=== PATIENT | female | born 1965 | race Caucasian/White ===

== ENCOUNTER 2021-11-10 10:13 | Observation (INO) | payer MEDICARE, MEDICAID, SELFPAY ==
[2021-11-10] VITALS (9 sets, daily range): BP systolic 106–143; BP diastolic 66–92; PULSE 74–117; RESP 16–18; TEMP 36.6–37; O2SAT 93–98; BMI 22.1; BMI 19.5
--- NOTE | 2021-11-10 10:26 | CT_ITS ---
FINAL REPORT CLINICAL HISTORY: pain FINDINGS: CT OF THE ABDOMEN AND PELVIS WITH CONTRAST Axial CT images of the abdomen and pelvis were obtained after the administration of oral and iv contrast. Coronal reformatted images were also obtained and reviewed.This study was performed with techniques to keep radiation doses as low as reasonably achievable (ALARA). Individualized dose reduction techniques using automated exposure control or adjustment of mA and/or kV according to the patient's size were employed. Abdomen: The lung bases are clear. The heart is normal in size. The liver has an unremarkable appearance, without evidence of mass or biliary ductal dilatation. The patient is status post cholecystectomy. The spleen is unremarkable. No adrenal mass is present. The pancreas has an unremarkable appearance. The kidneys are normal, without evidence of mass or hydronephrosis. The aorta is normal in caliber. There is no free fluid or adenopathy. No mass or abnormal fluid collection is seen. Pelvis: The appendix is normal. The patient is status post hysterectomy The urinary bladder is unremarkable. No inflammatory process is seen. There is no evidence of mass or adenopathy. There is no evidence of bowel obstruction. IMPRESSION: No evidence of acute intra-abdominal process. Reviewed, Interpreted and Dictated by Kenji Mercado III, MD Transcribed by Caitlin Etienne Authenticated by Kenji Mercado III, MD on 11/10/2021 03:45:32 PM [facility]
--- NOTE | 2021-11-10 10:27 | HMH.EDGENADL ---
ED Disposition Clinical Impression: Dehydration, Elevated troponin, Abnormal EKG Vomiting Qualifiers: Vomiting type: unspecified Nausea presence: with nausea Qualified Code(s): R11.2 - Nausea with vomiting, unspecified Hypothyroidism Qualifiers: Hypothyroidism type: unspecified Qualified Code(s): E03.9 - Hypothyroidism, unspecified UTI (urinary tract infection) Qualifiers: Urinary tract infection type: acute cystitis Hematuria presence: without hematuria Qualified Code(s): N30.00 - Acute cystitis without hematuria Disposition: Admitted as Observation Condition on Discharge: [facility] - Critical Care Critical Care Time: No Attestation: On 11/10/21, the high probability of a clinically significant, sudden or life threatening deterioration of the following system(s) required my full and direct attention, intervention and personal management. The time I documented below is in addition to time spent performing reported procedures but includes the following listed in this critical care notation. Medical Decision Making - Philip Inquiry Pt receiving controlled substance: No Vital Signs: 11/10/21 10:14 11/10/21 12:30 11/10/21 13:00 Temperature 98.5 F Temperature Source Oral Pulse Rate 92 H 101 H Pulse Rate [Left Radial] 117 H Respiratory Rate 18 Blood Pressure 126/81 118/82 Blood Pressure [Right Arm] 118/92 H Blood Pressure Mean [Right Arm] 100 Blood Pressure Source [Right Arm] Automatic Cuff Blood Pressure Position [Right Arm] Supine 02 Sat by Pulse Oximetry 93 L 96 93 L Oxygen Delivery Method Room Air 11/10/21 13:30 11/10/21 14:00 Temperature Temperature Source Pulse Rate 105 H 102 H Pulse Rate [Left Radial] Respiratory Rate Blood Pressure 106/66 L 111/79 Blood Pressure [Right Arm] Blood Pressure Mean [Right Arm] Blood Pressure Source [Right Arm] Blood Pressure Position [Right Arm] 02 Sat by Pulse Oximetry 97 94 L Oxygen Delivery Method - Lab Data Lab Results 11/10/21 10:26: SARS-CoV-2 (PCR) Not detected, Influenza A Untype (PCR) Not detected, Influenza Type B (PCR) Not detected 11/10/21 11:06: WBC 9.9, RBC 5.03, Hgb 15.9, Hct 48.7 H, MCV 96.7, MCH 31.5 H, MCHC 32.6, RDW 13.7, Plt Count 272, MPV 10.2, Neut % (Auto) 74.1, Lymph % (Auto) 15.5, Bartholomew % (Auto) 5.6, Eos % (Auto) 1.5, Baso % (Auto) 3.3 H, Neut # (Auto) 7.3, Lymph # (Auto) 1.5, Bartholomew # (Auto) 0.6, Eos # (Auto) 0.2, Baso # (Auto) 0.3 H 11/10/21 11:06: Sodium 127 L, Potassium 3.5, Chloride 92 L, Carbon Dioxide 27, Anion Gap 11.5, BUN 44 H, Creatinine 1.40 H, Estimated Creat Clear 41, Estimated GFR 39 L, Est GFR ( Amer) 47 L, Glucose 115 H, Calcium 8.3 L, Total Bilirubin 1.4 H, AST 148 H, ALT 45, Alkaline Phosphatase 146 H, Troponin I 0.11 H, Total Protein 6.9, Albumin 3.5, Globulin 3.4 H, Albumin/Globulin Ratio 1.0 L, Amylase 70, Lipase 154 11/10/21 11:06: TSH 15.30 H, Free T4 Index 2.7 L, Thyroxine (T4) 7.5, T3 Uptake 36 11/10/21 14:00: Troponin I 0.12 H 11/10/21 16:30: Urine Color [place], Urine Appearance Cloudy, Urine pH 6.5, Ur Specific [place] 1.015, Urine Protein 1+, Urine Glucose (UA) Negative, Urine Ketones Trace, Urine Blood Trace-l, Urine Nitrate Positive, Urine Bilirubin Negative, Urine Urobilinogen 1.0, Ur Leukocyte Esterase 2+ A Result diagrams: 11/10/21 11:06 11/10/21 11:06 Orders (Tests/Meds): ED MEDICATIONS Discontinued Medications Generic Name Dose Route Start Last Admin Trade Name Freq PRN Reason Stop Dose Admin Aspirin 324 mg 11/10/21 16:40 Aspirin 81mg Chewable Tablet PO 11/10/21 16:41 ONCE ONE Sodium Chloride 1,000 mls @ 999 mls/hr 11/10/21 10:30 11/10/21 11:18 Sod Chlor 0.9% 1000ml Bag IV 11/10/21 11:30 999 mls/hr .Q1H1M BASILIO Administration Ondansetron HCl 4 mg 11/10/21 10:26 11/10/21 11:18 Ondansetron 4mg/2ml Vial IV 11/10/21 10:27 4 mg ONCE ONE Administration Ticagrelor 180 mg 11/10/21 16:40 Ticagrelor 90mg Tablet PO
--- NOTE | 2021-11-10 10:30 | PC.NURSE ---
attempting to get blood work and IV access
[2021-11-10 10:39] LABS: Coronavirus 19, PCR Not Detected (NotDetected); Influenza A, PCR Not Detected (NotDetected); Influenza B, PCR Not Detected (NotDetected)
--- NOTE | 2021-11-10 10:42 | XR_ITS ---
FINAL REPORT CLINICAL HISTORY: cough FINDINGS: Two views of the chest were obtained. The heart size and pulmonary vascularity are within normal limits. The mediastinum is normal. There is mild biapical scarring and pleural thickening. There is no pneumothorax. The bony thorax is intact. IMPRESSION: Mild biapical scarring and pleural thickening. Reviewed, Interpreted and Dictated by Kenji Mercado III, MD Transcribed by Anum Saucedo Authenticated by Kenji Mercado III, MD on 11/10/2021 12:41:[address] [facility]
[2021-11-10 12:09] LABS: Basophils # 0.3 K/mm3 (0-0.2); Basophils % 3.3 % (0.1-2.0); Eosinophils # 0.2 K/mm3 (0.0-0.4); Eosinophils % 1.5 % (0.1-12.0); Hematocrit 48.7 % (37.0-47.0); Hemoglobin 15.9 g/dL (12.2-16.2); Lymphocytes # 1.5 K/mm3 (0.7-4.5); Lymphocytes % 15.5 % (10-50); Mean Corpuscular HGB Conc 32.6 g/dL (31.8-35.4); Mean Corpuscular Hemoglobin 31.5 pg (27.0-31.2); Mean Corpuscular Volume 96.7 fl (81-99); Mean Platelet Volume 10.2 fl (7.4-10.4); Monocytes # 0.6 K/mm3 (0.1-1.0); Monocytes % 5.6 % (1.7-9.3); Neutrophils # 7.3 K/mm3 (1.8-7.8); Neutrophils % 74.1 % (37.0-80.0); Platelet Count 272 K/mm3 (142-424); Red Blood Count 5.03 M/mm3 (4.20-5.40); Red Cell Distribution Width 13.7 % (11.5-17.5); White Blood Count 9.9 K/mm3 (4.8-10.8)
[2021-11-10 12:15] LABS: Chloride 92 mmol/L (98-107); Potassium 3.5 mmoL/L (3.5-5.1); Sodium 127 mmol/L (136-145)
[2021-11-10 12:17] LABS: Amylase 70 U/L (30-110)
[2021-11-10 12:18] LABS: Alanine Aminotransferase 45 U/L (12-78); Albumin Level 3.5 g/dl (3.5-5.0); Alkaline Phosphatase 146 U/L (38-126); Anion Gap 11.5 mEq/L (5-15); Aspartate Amino Transferase 148 U/L (14-36); Bilirubin,Total 1.4 mg/dl (0.2-1.3); Blood Urea Nitrogen 44 mg/dl (7-17); Calcium 8.3 mg/dl (8.4-10.2); Carbon Dioxide 27 mmol/L (22.0-30.0); Creatinine Clearance Estimated 41 mL/min (50-200); Estimated Glomerular Filt Rate 39 ml/min (>60); GFR (African American) 47 ML/MIN (>60); Globulin 3.4 g/dL (1.3-3.2); Glucose 115 mg/dl (74-100); Lipase 154 U/L (23-300); Total Protein,Serum 6.9 g/dl (6.3-8.2)
[2021-11-10 12:30] LABS: Troponin I 0.11 ng/ml (0.00-0.034)
--- NOTE | 2021-11-10 13:00 | ECG_ITS ---
APPROVED REPORT Exam: Resting ECG HR:101 bpm ECG Measurements Heart Rate 101 AXES AR 148 P 80 QRSd 69 QRS 87 QT 397 T 12 QTc [address] DEVIATION AND MODERATE T-WAVE ABNORMALITY, CONSIDER ANTEROLATERAL ISCHEMIA [-0.1+ mV T-WAVE IN V3-V6] ST DEVIATION AND MODERATE T-WAVE ABNORMALITY, CONSIDER INFERIOR ISCHEMIA [-0.1+ mV T-WAVE IN II/aVF] ABNORMAL ECG UNCONFIRMED REPORT Electronically signed by : Maciel Van MD 11/10/2021 19:53:34
--- NOTE | 2021-11-10 13:08 | CA_ITS ---
APPROVED REPORT EXAM: Comprehensive 2D, Doppler, and color-flow Echocardiogram [employer] H[employer]: Ladonna Tai RVT Ht: 5 ft 3 in Wt: 125lbs BSA: 1.58 BP: 118/92 mmHg Indications: ELEVATED TROP,N/V/D X 3 WEEKS,EX SMOKER TDS-LIMITED WINDOWS BEST EXAM POSSIBLE 2D Dimensions LVOT 1.87 cm (M/F) 1.5-2.5 M-Mode Dimensions RVDd 2.00 cm (0.9-2.6) LA Diam 1.76 cm (1.9-4.0) LVDd 2.72 cm (3.5-5.7) Ao Diam 2.30 cm (2.0-3.7) LVDs 1.68 cm (3.5-5.7) IVSd 0.72 cm (0.6-1.1) PWd 0.75 cm (0.6-1.1) EF (Teich) 70.50% FS 38.20% EDV (Teich) 27.50 mL TAPSE 1.04 (<1.7) ESV (Teich) 8.10 mL LV Diastology E Decel Time 227.00 (160-240 msec) E/A Ratio 0.8 MED E' 5.70 (< 7 cm/sec) E'/MED E' Ratio 10.68 (>14) LAT E' 7.80 (<10 cm/sec) E/LAT E' Ratio 7.81 (>14) Aortic Valve LVOT Max 142.00 (70-110 cm/s) LVOT VTI 19.65 cm AoV Peak Matt. 146.00 (50-130 cm/s) AI PHT 1168.00 ms AO Peak GR. 8.50 mmHg AO Mean GR. 5.10 (<5 mmHg) AO VTI 19.97 (18-25 cm) CINTIA (VTI) 2.70 (2.5-4.5 cm2) Mitral Valve MV E Max Matt. 61.00 (40-130 cm/s) MV A Velocity 76.00 (40-130 cm/s) E/A Ratio 0.81 MV Decel. Time 227.00 (160-240 ms) MV PHT 66.00 ms Pulmonary Valve PV Peak Velocity 113.00 (50-150 cm/s) Left Ventricle Left atrium is mildly enlarged, left ventricle is normal size, mild concentric left ventricular hypertrophy, visually estimated ejection fraction 55%, with no obvious regional wall motion abnormality, endocardial surfaces are poorly visualized. Grade 1 diastolic dysfunction seen without tissue Doppler evidence of raise left atrial pressure. Right Ventricle Right atrium and right ventricle are normal size and contractility. Aortic Valve Aortic valve is thickened and calcified without Doppler evidence of aortic stenosis, there is mild aortic insufficiency. Mitral Valve Mitral valve is grossly normal, there is trace mitral regurgitation. Tricuspid Valve Tricuspid valve grossly normal, there is trace tricuspid regurgitation, tricuspid regurgitation jet velocity is inadequate for calculation of the right ventricular systolic pressure. Pulmonic Valve Pulmonic valve is poorly visualized. Great Vessels Aortic root is normal size. Inferior vena cava is poorly visualized. Pericardium No significant pericardial effusion noted. Conclusion 1. Mildly enlarged left atrium, normal left ventricular size, mild concentric left ventricular hypertrophy, visually estimated ejection fraction 55% with no regional wall motion abnormality, grade 1 diastolic dysfunction seen without tissue Doppler evidence of raise left atrial pressure. 2. Mild aortic, trace mitral and tricuspid regurgitation. 3. No significant pericardial effusion noted. 4. Inferior vena cava is poorly visualized. Electronically signed by : Bony Wilcox MD 11/10/2021 19:31:26
[2021-11-10 13:23] LABS: Triiodothryronine (T3) Uptake 36 % (23.5-40.5)
[2021-11-10 13:24] LABS: Free Thyroxine Index 2.7 ug/dL (5.93-13.13); T4 (Thyroxine) 7.5 ug/dl (5.53-11.0)
[2021-11-10 14:33] LABS: Troponin I 0.12 ng/ml (0.00-0.034)
[2021-11-10 16:36] LABS: Microscopic, Urine URINE MICROSCOPIC (MICROSCOPIC)
[2021-11-10 16:38] LABS: Appearance,Urine CLOUDY (Clear); Bilirubin,Urine Negative (Negative); Blood, Urine TRACE-L (Negative); Color,Urine ORANGE (Yellow); Glucose,Urine (UA) Negative (Negative); Ketones,Urine TRACE (Negative); Leukocyte Esterase,Urine 2+ (Negative); Nitrate,Urine POSITIVE (Negative); PH,Urine 6.5 (5.0-8.5); Protein,Urine 1+ (Negative); Specific Gravity, Urine 1.015 (1.005-1.030)
--- NOTE | 2021-11-10 16:38 | PC.NURSE ---
man speaking with
--- NOTE | 2021-11-10 16:50 | PC.NURSE ---
Update family about pt admission
[2021-11-10 17:13] LABS: Bacteria,Urine 3+ /lpf
--- NOTE | 2021-11-10 17:22 | PC.NURSE ---
REPORT CALLED TO FLOOR
[2021-11-10 17:39] LABS: Troponin I 0.14 ng/ml (0.00-0.034)
--- NOTE | 2021-11-10 18:01 | PC.NURSE ---
pt arrived to the floor at this time.
[2021-11-11 01:36] VITALS: BP 99/67; PULSE 69; RESP 16; TEMP 36.6; O2SAT 94
[2021-11-11 04:00] VITALS: PULSE 60
--- NOTE | 2021-11-11 04:35 | PC.NURSE ---
pt has rested t/o most of shift, no complaints of pain or nausea, has remained on room air, O2 sats 94-96%
[2021-11-11 06:00] VITALS: BMI 19.3
--- NOTE | 2021-11-11 07:17 | P.CONPHA_ITS ---
[facility] Pharmacy VTE Monitoring - Patient Demographics Admission date: 11/11/21 Report Date: 11/11/21 Time: 07:17 Allergies/Adverse Reactions: Patient Allergies cyclobenzaprine [From FLEXERIL] Allergy (Mild, Verified 11/10/21 10:26) . Height: 1.63 m Weight: 51.511 kg Patient Problems: Current Active Problems Dehydration (Acute) Elevated troponin (Acute) Abnormal EKG (Acute) Vomiting (Acute) Hypothyroidism (Acute) UTI (urinary tract infection) (Acute) - VTE Risk Labs: VTE Related Lab Results Hgb 15.9 g/dL (12.2-16.2) 11/10/21 11:06 Hct 48.7 % (37.0-47.0) H 11/10/21 11:06 Plt Count 272 K/mm3 (142-424) 11/10/21 11:06 BUN 44 mg/dl (7-17) H 11/10/21 11:06 Creatinine 1.40 mg/dl (0.52-1.04) H 11/10/21 11:06 Estimated Creat Clear 41 mL/min (50-200) 11/10/21 11:06 Was VTE Risk Assessment Performed: Yes VTE Score: 3 VTE Risk Level: Low Risk Clinical Trial Participant: No - Prophylaxis VTE Prophylaxis Ordered?: Yes Types of VTE Prophylaxis: TEDS Knee High
[2021-11-11 07:22] LABS: Anion Gap 8.5 mEq/L (5-15); Blood Urea Nitrogen 34 mg/dl (7-17); Calcium 7.7 mg/dl (8.4-10.2); Carbon Dioxide 29 mmol/L (22.0-30.0); Chloride 96 mmol/L (98-107); Creatinine Clearance Estimated 43 mL/min (50-200); Estimated Glomerular Filt Rate 47 ml/min (>60); GFR (African American) 56 ML/MIN (>60); Glucose 79 mg/dl (74-100); Sodium 131 mmol/L (136-145)
[2021-11-11 07:27] LABS: Potassium 2.5 mmoL/L (3.5-5.1)
--- NOTE | 2021-11-11 07:48 | HMH.PHAINT ---
HOME MEDICATION LIST COMPLETED USING LIST FROM [facility]
[2021-11-11 08:00] VITALS: BP 106/70; PULSE 76; PULSE 80; RESP 18; TEMP 36.8; O2SAT 93
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
--- NOTE | 2021-11-11 08:28 | FL_ITS ---
FINAL REPORT CLINICAL HISTORY: . FINDINGS: UPPER GI WITH SBFT HISTORY: Nausea PROCEDURE: The patient ingested barium. Effervescent crystals were also administered. Spot and overhead films were obtained. Additional barium was administered for a SBFT. FINDINGS:The esophagus has a normal appearance.Marked gastroesophageal reflux is noted to the level of the upper thoracic esophagus. Peristalsis is normal. The rugal fold pattern of the stomach is normal. The duodenal bulb is unremarkable. FLUOROSCOPY TIME:1 minute IMPRESSION: Marked gastroesophageal reflux. Otherwise, unremarkable upper GI. SBFT: The small battery plate assembler film is normal. There is no evidence of obstruction. The mucosal fold pattern is normal. The terminal ilium is normal. IMPRESSION: Normal SBFT. Reviewed, Interpreted and Dictated by Kenji Mercado III, MD Transcribed by JR Weiss Authenticated by Kenji Mercado III, MD on 11/11/2021 11:53:[address] [facility]
--- NOTE | 2021-11-11 09:13 | HMH.PHAINT ---
VERIFIED HOME MEDICATIONS WITH LIST FROM PHARMACY
[2021-11-11 09:23] LABS: C-Reactive Protein 13.4 mg/L (0-4)
[2021-11-11 09:35] LABS: Procalcitonin 0.171 ng/mL (0.0-2.0)
--- NOTE | 2021-11-11 09:50 | PC.NURSE ---
Pt currently off floor for scan. Dr. Perera made aware of K of 2.5.
[2021-11-11 10:11] LABS: Erythrocyte Sedimentation Rate 24 mm/hr (0-30)
--- NOTE | 2021-11-11 10:28 | HMH.HP ---
*Admission Date: 11/11/21 *Chief complaint: nausea *History of present illness: 56-year-old female presented to the emergency department with increasing nausea, vomiting, and vague abdominal pain. She states that she has had trouble for about 5 months . Patient reports a weight loss of 30 to 40 pounds has also been noted. States that she has been sick for 2 weeks with nausea and vomiting and feels like someone is ripping my guts out and has been unable to take her medications for 1 week. Small dark bowel movements without visible blood. She lives with her 13 yr old adopted son. She is a nondrinker and denies drug use. She has never been to this hospital, states her primary care provider is in [place] at [facility]. Patient states her father had an IL at 57. She quit smoking 2 years ago. While in ed it was found pt had abnormal EKG and elevated troponins. Cardiology consulted for evaluation. [facility] History I have reviewed the patient's past medical history: Yes Medical History: Reports:: Hyperlipidemia, Hypertension *Have you ever received a pneumonia vaccine?: Yes *Have you received a flu vaccine this season?: No Other Medical History: Reports: Anemia, Arthritis, Sinus Problems, Thyroid Disease Other Surgeries: Yes: Cholecystectomy, , Hysterectomy-Partial - *Social History Smoking Status: Former smoker # Packs/Day (cigarettes): 1 Alcohol Intake: never *Occupational Status:: disabled *Travel in the last 8 weeks: None Family Hx:: Cancer, Diabetes, Heart Attack Review of Systems - Constitutional Reports weakness, Denies body ache(s), Denies lack of energy - Eyes Denies blurry vision - ENT Denies change in voice - *Cardiovascular Denies shortness of breath - *Respiratory Reports cough, Denies chest congestion - *Gastrointestinal Reports loose stools, Reports nausea, Reports vomiting, Denies abdominal pain - *Genitourinary Denies urinary urgency - *Musculoskeletal Denies abnormal walking - Integumentary/Breasts Denies rash - *Neurologic Reports dizziness, Denies abnormal hearing - Psychiatric Denies anxiety - Endocrine Denies cold intolerance - Hematologic/Lymphatic Denies easy bruising - Allergic/Immunologic Denies GI upset with certain foods Meds Home Medications Medication Instructions Recorded Confirmed Type Buspirone HCl [Buspirone 15 mg 15 mg PO QID 11/10/21 11/11/21 History Tablets] Fluoxetine HCl 80 mg PO DAILY 11/10/21 11/10/21 History Levothyroxine Sodium 125 mcg PO DAILY 11/10/21 11/10/21 History [Levothyroxine 125mcg (0.125mg) Tab] Metoprolol Tartrate [Lopressor 25 mg PO BID 11/10/21 11/10/21 History 25mg tablet] Montelukast Sodium 10 mg PO DAILY 11/10/21 11/10/21 History Omeprazole [Omeprazole 40mg 40 mg PO DAILY 11/10/21 11/10/21 History Capsule] Simvastatin 40 mg PO DAILY 11/10/21 11/10/21 History diazePAM [diazePAM 5mg Tablet] 5 mg PO TID 11/10/21 11/10/21 History lisinopriL [Lisinopril] 10 mg PO HS 11/10/21 11/10/21 History Fluticasone Propion/Salmeterol 2 puffs INHALATION BID 11/11/21 11/11/21 History [Advair Hfa 115-21 Mcg Inhaler] Trazodone HCl 150 mg PO PM 11/11/21 11/11/21 History Allergies Allergy/AdvReac Type Severity Reaction Status Date / Time cyclobenzaprine Allergy Mild . Verified 11/10/21 10:26 [From [facility]THER[facility]] Exam Vital signs and Labs for Last 24 Hours: Temp Pulse Resp BP Pulse Ox 98.2 F 76 18 106/70 L 93 L 11/11/21 08:00 11/11/21 08:00 11/11/21 08:00 11/11/21 08:00 11/11/21 08:00 Laboratory Results - last 24 hr 11/10/21 10:26: SARS-CoV-2 (PCR) Not detected, Influenza A Untype (PCR) Not detected, Influenza Type B (PCR) Not detected 11/10/21 11:06: WBC 9.9, RBC 5.03, Hgb 15.9, Hct 48.7 H, MCV 96.7, MCH 31.5 H, MCHC 32.6, RDW 13.7, Plt Count 272, MPV 10.2, Neut % (Auto) 74.1, Lymph % (Auto) 15.5, [place] % (Auto) 5.6, Eos % (Auto) 1.5, Baso % (Auto) 3.3 H, Neut # (Auto) 7.3, Lymph #
--- NOTE | 2021-11-11 11:01 | PC.NURSE ---
Pt still continues to be off floor.
[2021-11-11 12:00] VITALS: PULSE 69
--- NOTE | 2021-11-11 12:49 | DIET.NUTRFU ---
RD rounded with provider. pt reported n/v prior to admit for the last 10 days. Pt has lost 45# over the last 5 months. Pt on clear liquid diet, poor intake. Sodium low, IFV being provided. Pt at risk of malnutrition. Spoke to pt about supplements, agreed to try Boost breeze to meet nutritional needs.
[2021-11-11 12:54] VITALS: BMI 19.5
[2021-11-11 15:32] VITALS: BP 86/50; PULSE 69; RESP 18; TEMP 36.5; O2SAT 94
--- NOTE | 2021-11-11 16:25 | HMH.GSCON ---
*Admission Date: 11/11/21 *Reason for consult:: Nausea, vomiting, and weight loss *History of present illness: This is a 56-year-old female seen in consultation from the primary service after presenting to the emergency department with increasing nausea, vomiting, and vague abdominal pain. She states that she has had trouble for about 5 months . She claims that she developed fairly significant coughing approximately 5 months ago and subsequent difficulty swallowing. Soon thereafter, fairly significant nausea with intermittent emesis was noted. She states that she has had trouble keeping anything down since . A concomitant weight loss of 30 to 40 pounds has also been noted. She presented to the emergency department with increasing symptomatology. A CT scan revealed no significant abnormality. Follow-up UGI/SBFT did reveal reflux but was otherwise normal. Specifically, no gastric outlet obstruction or small bowel obstruction identified. Evaluation also revealed her to have elevated troponin and acute renal insufficiency. EKG abnormalities were also noted. She has been evaluated by cardiology and tentatively scheduled for heart catheterization tomorrow. Review of Systems - Constitutional Denies chills - Eyes Denies change in vision - ENT Reports difficulty swallowing - *Respiratory Reports cough - *Gastrointestinal Reports nausea, Reports vomiting [facility] History Medical History: Reports:: Hyperlipidemia, Hypertension *Have you ever received a pneumonia vaccine?: Yes *Have you received a flu vaccine this season?: No Other Medical History: Reports: Anemia, Arthritis, Sinus Problems, Thyroid Disease Other Surgeries: Yes: Cholecystectomy, , Hysterectomy-Partial - *Social History Smoking Status: Former smoker # Packs/Day (cigarettes): 1 Alcohol Intake: never *Occupational Status:: disabled *Travel in the last 8 weeks: None Family Hx:: Cancer, Diabetes, Heart Attack Meds Home Medications Medication Instructions Recorded Confirmed Type Buspirone HCl [Buspirone 15 mg 15 mg PO QID 11/10/21 11/11/21 History Tablets] Fluoxetine HCl 80 mg PO DAILY 11/10/21 11/10/21 History Levothyroxine Sodium 125 mcg PO DAILY 11/10/21 11/10/21 History [Levothyroxine 125mcg (0.125mg) Tab] Metoprolol Tartrate [Lopressor 25 mg PO BID 11/10/21 11/10/21 History 25mg tablet] Montelukast Sodium 10 mg PO DAILY 11/10/21 11/10/21 History Omeprazole [Omeprazole 40mg 40 mg PO DAILY 11/10/21 11/10/21 History Capsule] Simvastatin 40 mg PO DAILY 11/10/21 11/10/21 History diazePAM [diazePAM 5mg Tablet] 5 mg PO TID 11/10/21 11/10/21 History lisinopriL [Lisinopril] 10 mg PO HS 11/10/21 11/10/21 History Fluticasone Propion/Salmeterol 2 puffs INHALATION BID 11/11/21 11/11/21 History [Advair Hfa 115-21 Mcg Inhaler] Trazodone HCl 150 mg PO PM 11/11/21 11/11/21 History Allergies Allergy/AdvReac Type Severity Reaction Status Date / Time cyclobenzaprine Allergy Mild . Verified 11/10/21 10:26 [From FLEXERIL] Exam Vital signs and Labs for Last 24 Hours: Temp Pulse Resp BP Pulse Ox 97.7 F 69 18 86/50 L 94 L 11/11/21 15:32 11/11/21 15:32 11/11/21 15:32 11/11/21 15:32 11/11/21 15:32 Laboratory Results - last 24 hr 11/10/21 16:30: Urine Color [place], Urine Appearance Cloudy, Urine pH 6.5, Ur Specific [place] 1.015, Urine Protein 1+, Urine Glucose (UA) Negative, Urine Ketones Trace, Urine Blood Trace-l, Urine Nitrate Positive, Urine Bilirubin Negative, Urine Urobilinogen 1.0, Ur Leukocyte Esterase 2+ A, Urine RBC 3-5, Urine WBC 10-20, Ur Squamous Epith Cells None, Urine Bacteria 3+ 11/10/21 17:00: Troponin I 0.14 H 11/11/21 06:33: Sodium 131 L, Potassium 2.5 L* D, Chloride 96 L, Carbon Dioxide 29, Anion Gap 8.5, BUN 34 H, Creatinine 1.20 H, Estimated Creat Clear 43, Estimated GFR 47 L, Est GFR ( Amer) 56 L, Glucose 79 D, Calcium 7.7 L 11/11/21 06:33: C-Reactive Protein 13.4 H, Procalcit
--- NOTE | 2021-11-11 19:50 | PC.NURSE ---
Pt has had loose stools this shift. This RN notified Dr. Perera and requested po med for loose stools. They ordered a stool sample and an occult stool. Pt's last BM had urine and barium in it. This RN instructed pt to put stool only in hat next BM for sample. Pt verbs understanding and primary night RN aware of need for stool ample.
[2021-11-11 20:00] VITALS: BP 101/58; PULSE 65; PULSE 70; RESP 16; TEMP 36.6; O2SAT 94
[2021-11-11 20:15] LABS: Adenovirus F 40/41, stool Not Detected (NotDetected); Astrovirus Not Detected (NotDetected); Campylobacter Not Detected (NotDetected); Clostridium Difficile A/B, PCR Not Detected (NotDetected); Cryptosporidium Not Detected (NotDetected); Cyclospora Cayetanesis Not Detected (NotDetected); Entamoeba histolytica Not Detected (NotDetected); Enteroaggregative E coli Not Detected (NotDetected); Enteropathogenic E coli Not Detected (NotDetected); Enterotoxigenic E coli Not Detected (NotDetected); Giardia lamblia Not Detected (NotDetected); Norovirus Not Detected (NotDetected); Plesimonas Shigalloides, PCR Not Detected (NotDetected); Rotavirus A Not Detected (NotDetected); Salmonella, PCR Not Detected (NotDetected); Sapovirus Not Detected (NotDetected); Shiga-like toxin E coli Not Detected (NotDetected); Shigella Enterovasive E coli Not Detected (NotDetected); Vibrio Cholerae Not Detected (NotDetected); Vibrio, PCR Not Detected (NotDetected); Yersinia Entercolitica, PCR Not Detected (NotDetected)
[2021-11-12] VITALS (22 sets, daily range): BP systolic 78–110; BP diastolic 45–79; PULSE 50–63; RESP 16–18; TEMP 36.6–36.8; O2SAT 92–99; BMI 19.1
--- NOTE | 2021-11-12 | IR_ITS ---
APPROVED REPORT Patient Location: Inpatient PROCEDURES Left heart catheterization Left ventriculogram Selective coronary INDICATION Acute coronary syndrome with elevated troponin Informed consent was obtained prior to the procedure. COMPLICATIONS None Estimated Blood Loss: less than 10 ml TECHNIQUE One percent lidocaine used to anesthetize the right anterior aspect of the wrist. The right radial artery was accessed via the Seldinger technique. A 6 [place] sheath was placed in the right radial artery. 2.5 mg of verapamil, 800 mcg of nitroglycerin, 1mg Lidocaine and 5000 U Heparin were given through the arterial sheath. The Pappa catheter was also used to perform left heart catheterization, left ventriculogram and selective coronary angiogram. At the end of the procedure the sheath was removed good hemostasis was achieved using Traclet band, patient was transferred to the postop holding area in stable condition. ANGIOGRAPHIC RESULTS The left main artery Normal The left anterior descending artery Is proximally normal and has a mid vessel concentric 90% myocardial bridge during systole with remaining vessel normal The circumflex artery Nondominant and normal The right coronary artery Dominant normal The ALEJANDRE ventriculogram reveals Hyperdynamic 70 to 75% The left ventricular end-diastolic pressure 15 mmHg IMPRESSION Angiographically impressive myocardial bridge accompanied by hyperdynamic wall motion. Mildly elevated LVEDP PLAN 1. Recommend medical management. Management should include negative inotrope such as diltiazem or verapamil possibly combined with beta-blockers if patient can tolerate 2. Continue risk factor modification 3. Should patient continue to experience symptoms this vessel could be stented or possibly referred for surgical release of the myocardial bridge. Typically patients do well with medical management and that should be tried and maximized prior to consideration of either surgical or percutaneous correction Electronically signed by : Gareth Nails MD 11/12/2021 11:40:08
--- NOTE | 2021-11-12 06:41 | HMH.GSPN ---
Subjective Narrative: The patient is currently resting. Per nursing staff, plans remain for her to undergo heart catheterization this morning. Progress Note: A&P (1) Dehydration Status: Acute (2) Hypertension Status: Acute (3) Hyperlipidemia Status: Acute (4) Family history of coronary artery disease in father Status: Acute (5) Abnormal EKG Status: Acute (6) Elevated troponin Status: Acute (7) Hypothyroidism Status: Acute (8) UTI (urinary tract infection) Status: Acute (9) Vomiting Status: Deleted Assessment and Plan for All Diagnoses:: Follow-up results of heart catheterization EGD and colonoscopy in the near future are both warranted; however, evaluation by the gastroenterology service preferable secondary to the patient's multitude symptoms and concerns for irritable bowel Gastric emptying scan (preferably in the outpatient setting) warranted Will require cardiology clearance prior to any procedure Exam Vital signs and Labs for Last 24 Hours: Temp Pulse Resp BP Pulse Ox 97.9 F 59 L 16 84/62 L 95 11/12/21 04:00 11/12/21 04:00 11/12/21 04:00 11/12/21 04:00 11/12/21 04:00 Laboratory Results - last 24 hr 11/10/21 16:30: Urine Color [place], Urine Appearance Cloudy, Urine pH 6.5, Ur Specific [place] 1.015, Urine Protein 1+, Urine Glucose (UA) Negative, Urine Ketones Trace, Urine Blood Trace-l, Urine Nitrate Positive, Urine Bilirubin Negative, Urine Urobilinogen 1.0, Ur Leukocyte Esterase 2+ A, Urine RBC 3-5, Urine WBC 10-20, Ur Squamous Epith Cells None, Urine Bacteria 3+ 11/11/21 06:33: Sodium 131 L, Potassium 2.5 L* D, Chloride 96 L, Carbon Dioxide 29, Anion Gap 8.5, BUN 34 H, Creatinine 1.20 H, Estimated Creat Clear 43, Estimated GFR 47 L, Est GFR ( Amer) 56 L, Glucose 79 D, Calcium 7.7 L 11/11/21 06:33: C-Reactive Protein 13.4 H, Procalcitonin 0.171 11/11/21 06:33: ESR 24 11/11/21 20:04: Stl Aeromonas (PCR) Not detected, Stl C. cayetanensis PCR Not detected, Stool Rotavirus (PCR) Not detected, Stl Adenov F 40/41 PCR Not detected, Stool Astrovirus (PCR) Not detected, Stool Campylobacter PCR Not detected, Stl C.difficile Tox PCR Not detected, Stool Cryptosporidium PCR Not detected, Stl E.coli Shiga Tox PCR Not detected, Stool E coli O157 PCR Not detected, Stl Enterotoxigenic E PCR Not detected, Stool EPEC (PCR) Not detected, Stool EAEC (PCR) Not detected, Stl E. histolytica PCR Not detected, Stool Giardia Lamblia PCR Not detected, Stool Salmonella PCR Not detected, Stool Sapovirus (PCR) Not detected, Stl P. shigelloides PCR Not detected, Stl Shigella/EIEC PCR Not detected, St Y.enterocolitica PCR Not detected, Stool Vibrio (PCR) Not detected, Stl Vibrio cholerae PCR Not detected, Stl Norovirus GI/GII PCR Not detected I & O for Last 24 hours: Intake & Output 11/09/21 11/10/21 11/11/21 11/12/21 11:59 11:59 11:59 11:59 Intake Total 1698 / 1698 720 / 720 Balance 1698 / 1698 720 / 720 Weight 125 lb 113 lb 8.997 oz 111 lb 15.917 oz Microbiology Reports for the Last 24 Hours: Microbiology 11/10/21 16:30 Urine,Clean Catch Urine Culture - Preliminary Gram Negative Rods - Constitutional no acute distress - *Routine Respiratory Exam Absent: respiratory distress - *Routine Cardiovascular Exam Absent: tachycardia
--- NOTE | 2021-11-12 07:10 | HMH.PNCARD ---
Subjective Date: 11/12/21 Time: 07:10 Principal diagnosis: Angina, N/V Interval history: 56-year-old white female in bed in no acute distress. No chest pain overnight. Questions regarding cardiac catheterization answered. Plans to proceed later today. A.m. blood work unable to be obtained at this time. Exam Vital signs and Labs for Last 24 Hours: Temp Pulse Resp BP Pulse Ox 97.9 F 59 L 16 84/62 L 95 11/12/21 04:00 11/12/21 04:00 11/12/21 04:00 11/12/21 04:00 11/12/21 04:00 Laboratory Results - last 24 hr 11/11/21 06:33: Sodium 131 L, Potassium 2.5 L* D, Chloride 96 L, Carbon Dioxide 29, Anion Gap 8.5, BUN 34 H, Creatinine 1.20 H, Estimated Creat Clear 43, Estimated GFR 47 L, Est GFR ( Amer) 56 L, Glucose 79 D, Calcium 7.7 L 11/11/21 06:33: C-Reactive Protein 13.4 H, Procalcitonin 0.171 11/11/21 06:33: ESR 24 11/11/21 20:04: Stl Aeromonas (PCR) Not detected, Stl C. cayetanensis PCR Not detected, Stool Rotavirus (PCR) Not detected, Stl Adenov F 40/41 PCR Not detected, Stool Astrovirus (PCR) Not detected, Stool Campylobacter PCR Not detected, Stl C.difficile Tox PCR Not detected, Stool Cryptosporidium PCR Not detected, Stl E.coli Shiga Tox PCR Not detected, Stool E coli O157 PCR Not detected, Stl Enterotoxigenic E PCR Not detected, Stool EPEC (PCR) Not detected, Stool EAEC (PCR) Not detected, Stl E. histolytica PCR Not detected, Stool Giardia Lamblia PCR Not detected, Stool Salmonella PCR Not detected, Stool Sapovirus (PCR) Not detected, Stl P. shigelloides PCR Not detected, Stl Shigella/EIEC PCR Not detected, St Y.enterocolitica PCR Not detected, Stool Vibrio (PCR) Not detected, Stl Vibrio cholerae PCR Not detected, Stl Norovirus GI/GII PCR Not detected I & O for Last 24 hours: Intake & Output 11/09/21 11/10/21 11/11/21 11/12/21 11:59 11:59 11:59 11:59 Intake Total 1698 / 1698 720 / 720 Balance 1698 / 1698 720 / 720 Weight 125 lb 113 lb 8.997 oz 111 lb 15.917 oz Microbiology Reports for the Last 24 Hours: Microbiology 11/10/21 16:30 Urine,Clean Catch Urine Culture - Preliminary Gram Negative Rods - Constitutional no acute distress - *Routine Respiratory Exam Present: CTA bilaterally - *Routine Cardiovascular Exam Present: RRR Progress Note: A&P (1) Dehydration Status: Acute (2) Hypertension Status: Acute (3) Hyperlipidemia Status: Acute (4) Family history of coronary artery disease in father Status: Acute (5) Abnormal EKG Status: Acute (6) Elevated troponin Status: Acute (7) Hypothyroidism Status: Acute (8) UTI (urinary tract infection) Status: Acute (9) Vomiting Status: Deleted Assessment and Plan for All Diagnoses:: 1. Nausea, vomiting and dehydration. IV fluids ongoing. Renal function improving but not back to normal. Labs pending for today. 2. Elevated troponins with markedly abnormal EKG. Strong family history of coronary artery disease in her father. Patient has multiple risk factors and would recommend proceeding with cardiac catheterization but would like to allow for electrolyte abnormalities and renal function to improve. We will plan to proceed with cardiac catheterization today. Continue aspirin, Brilinta, metoprolol and statin therapy. Echocardiogram reveals normal EF with no wall motion abnormalities. 3. Hypothyroidism, patient has been unable to take her thyroid replacement over the last 1 to 2 weeks. It has been restarted here. 4. Hypokalemia, replacement has been ordered. 5. Hyponatremia, improving with IV fluids 6. acute renal insufficiency, improving with IV fluids 7. UTI, on antibiotic therapy 8. Recent 40 pound weight loss per patient. Results of abdominal/pelvis CT discussed with reading radiologist, Dr. Kenji Mercado, no evidence of celiac artery stenosis was identified. Surgery consulted yesterday with plans for further GI evaluation pending [facility] today.
[2021-11-12 08:42] LABS: Basophils % 0.6 % (0.1-2.0); Eosinophils # 0.5 K/mm3 (0.0-0.4); Eosinophils % 9.6 % (0.1-12.0); Hematocrit 40.4 % (37.0-47.0); Hemoglobin 13.1 g/dL (12.2-16.2); Lymphocytes # 1.7 K/mm3 (0.7-4.5); Lymphocytes % 30.5 % (10-50); Mean Corpuscular HGB Conc 32.3 g/dL (31.8-35.4); Mean Corpuscular Hemoglobin 31.5 pg (27.0-31.2); Mean Corpuscular Volume 97.4 fl (81-99); Mean Platelet Volume 9.4 fl (7.4-10.4); Monocytes # 0.3 K/mm3 (0.1-1.0); Monocytes % 4.9 % (1.7-9.3); Neutrophils # 2.9 K/mm3 (1.8-7.8); Neutrophils % 54.4 % (37.0-80.0); Platelet Count 192 K/mm3 (142-424); Red Blood Count 4.15 M/mm3 (4.20-5.40); Red Cell Distribution Width 13.6 % (11.5-17.5); White Blood Count 5.4 K/mm3 (4.8-10.8)
[2021-11-12 09:02] LABS: Occult Blood,Stool Negative (Negative)
--- NOTE | 2021-11-12 09:11 | HMH.ACPN2 ---
Internal Medicine - PN: Subj *Date: 11/12/21 *Time: 09:11 Interval history: 56-year-old female patient resting in bed quietly, she reports she had a horrible night but will not elaborate. She denies any chest pain or shortness of breath during the night she does voice she is hungry and would like to have breakfast. Explained she is scheduled for cardiac cath at noon today we will begin her diet her diet and advance as tolerated. Exam Vital signs and Labs for Last 24 Hours: Temp Pulse Resp BP Pulse Ox 98 F 54 L 16 95/58 L 97 11/12/21 11:42 11/12/21 18:55 11/12/21 18:55 11/12/21 18:55 11/12/21 18:55 Laboratory Results - last 24 hr 11/11/21 20:04: Stl Aeromonas (PCR) Not detected, Stl C. cayetanensis PCR Not detected, Stool Rotavirus (PCR) Not detected, Stl Adenov F 40/41 PCR Not detected, Stool Astrovirus (PCR) Not detected, Stool Campylobacter PCR Not detected, Stl C.difficile Tox PCR Not detected, Stool Cryptosporidium PCR Not detected, Stl E.coli Shiga Tox PCR Not detected, Stool E coli O157 PCR Not detected, Stl Enterotoxigenic E PCR Not detected, Stool EPEC (PCR) Not detected, Stool EAEC (PCR) Not detected, Stl E. histolytica PCR Not detected, Stool Giardia Lamblia PCR Not detected, Stool Salmonella PCR Not detected, Stool Sapovirus (PCR) Not detected, Stl P. shigelloides PCR Not detected, Stl Shigella/EIEC PCR Not detected, St Y.enterocolitica PCR Not detected, Stool Vibrio (PCR) Not detected, Stl Vibrio cholerae PCR Not detected, Stl Norovirus GI/GII PCR Not detected 11/11/21 20:04: Stool Occult Blood Negative 11/12/21 08:13: WBC 5.4 D, RBC 4.15 L, Hgb 13.1, Hct 40.4, MCV 97.4, MCH 31.5 H, MCHC 32.3, RDW 13.6, Plt Count 192 D, MPV 9.4, Neut % (Auto) 54.4, Lymph % (Auto) 30.5, [place] % (Auto) 4.9, Eos % (Auto) 9.6, Baso % (Auto) 0.6, Neut # (Auto) 2.9, Lymph # (Auto) 1.7, [place] # (Auto) 0.3, Eos # (Auto) 0.5 H, Baso # (Auto) 0.0 11/12/21 08:13: Sodium 137, Potassium 3.1 L D, Chloride 109 H, Carbon Dioxide 21 L, Anion Gap 10.1, BUN 21 H D, Creatinine 1.00, Estimated Creat Clear 51, Estimated GFR 58 L, Est GFR ( Amer) 70 D, Glucose 67 L, Calcium 7.5 L 11/12/21 08:13: Magnesium 1.6 I & O for Last 24 hours: Intake & Output 11/09/21 11/10/21 11/11/21 11/12/21 23:59 23:59 23:59 23:59 Intake Total 120 / 120 2298 / 2298 1200 / 1200 Balance 120 / 120 2298 / 2298 1200 / 1200 Weight 113 lb 9 oz 114 lb 10.246 oz 111 lb 15.917 oz Microbiology Reports for the Last 24 Hours: Microbiology 11/10/21 16:30 Urine,Clean Catch Urine Culture - Final Escherichia coli - Constitutional no acute distress, chronically ill appearing - *Routine HEENT Exam Head: Present: normocephalic Eye: Present: EOMI ENT: Present: mucous membranes moist - *Routine Neck Exam Present: trachea midline. Absent: tracheal deviation - *Routine Respiratory Exam Present: CTA bilaterally. Absent: accessory muscle use - *Routine Cardiovascular Exam Present: RRR - *Routine Abdominal Exam Present: soft, normoactive bowel sounds. Absent: tenderness, firm - *Routine Extremities Exam Present: edema, full ROM, pulses intact. Absent: cyanosis, clubbing - *Routine Skin Exam Present: intact, dry. Absent: cyanosis, erythema - *Routine Neurological Exam Present: alert, oriented X3. Absent: altered mental status - Routine Psychiatric Exam Present: normal affect, normal thought process. Absent: auditory hallucinations Assessment and Plan (1) Dehydration Status: Acute Category: Medical Code(s): E86.0 - Dehydration (2) Hypertension Status: Acute Category: Medical Code(s): I10 - Essential (primary) hypertension (3) Hyperlipidemia Status: Acute Category: Medical Code(s): E78.5 - Hyperlipidemia, unspecified (4) Family history of coronary artery disease in father Status: Acute Category: Medical Code(s): Z82.49 - Family history of ischemic heart disease and other diseases
--- NOTE | 2021-11-12 09:33 | SW/DCPLANNER ---
PATIENT HAVING A HEART CATH TODAY...IF IT IS CLEAN SHE MAY DISCHARGE HOME LATER IN THE DAY. PATIENT PRESENTED INTO THE HOSPITAL WITH DEHYDRATION AND AN ELEVATED TROPONIN. SHE IS KNEW TO THE AREA, SHE WAS AT A HOSPITAL IN [place] AND WAS DISCHARGED AND PATIENT STATED SHE NEVER FELT LIKE THEY FOUND OUT WHAT WAS WRONG WITH HER, SO SHE PRESENTED HERE TO [facility] A SERVICE PATIENT. WILL CONTINUE TO FOLLOW PATIENT THROUGH HER STAY AND ASSIST IF PATIENT SHOULD NEED ANYTHING AT TIME OF DISPOSITION..
[2021-11-12 10:28] LABS: Chloride 109 mmol/L (98-107); Potassium 3.1 mmoL/L (3.5-5.1); Sodium 137 mmol/L (136-145)
[2021-11-12 10:31] LABS: Anion Gap 10.1 mEq/L (5-15); Blood Urea Nitrogen 21 mg/dl (7-17); Carbon Dioxide 21 mmol/L (22.0-30.0); Creatinine Clearance Estimated 51 mL/min (50-200); Estimated Glomerular Filt Rate 58 ml/min (>60); GFR (African American) 70 ML/MIN (>60)
[2021-11-12 10:32] LABS: Calcium 7.5 mg/dl (8.4-10.2); Glucose 67 mg/dl (74-100)
--- NOTE | 2021-11-12 10:34 | PC.NURSE ---
down for cathlab at this time
[2021-11-12 11:53] LABS: Magnesium 1.6 mg/dl (1.6-2.3)
--- NOTE | 2021-11-12 15:37 | PC.NURSE ---
patient has done well. multiple bowel movements consider yellow and espinal in color. [place] [facility] [place] has been incontinent. lower bp noted after heart cath but patient remains unsymptomatic. tolerating liquids well. some bleeding around tracelet and 2 of air replaced. no further bleeding noted.
--- NOTE | 2021-11-12 18:29 | PC.NURSE ---
Received report from Belinda GranadosRN @ [phone]
[2021-11-13] VITALS: BP 102/44; PULSE 60; RESP 17; TEMP 36.8; O2SAT 98
[2021-11-13 04:00] VITALS: BP 99/53; PULSE 57; PULSE 60; RESP 18; TEMP 36.6; O2SAT 94
--- NOTE | 2021-11-13 06:42 | HMH.GSPN ---
Subjective Narrative: The patient is currently resting. Progress Note: A&P (1) Dehydration Status: Acute (2) Hypertension Status: Acute (3) Hyperlipidemia Status: Acute (4) Family history of coronary artery disease in father Status: Acute (5) Abnormal EKG Status: Acute (6) Elevated troponin Status: Acute (7) Hypothyroidism Status: Acute (8) UTI (urinary tract infection) Status: Acute (9) Vomiting Status: Deleted Assessment and Plan for All Diagnoses:: Continue overall management as per primary service and cardiology. Outpatient gastroenterology consultation warranted. She will have outpatient follow-up in the general surgical office if gastroenterology consultation cannot be scheduled. Exam Vital signs and Labs for Last 24 Hours: Temp Pulse Resp BP Pulse Ox 98 F 57 L 18 99/53 L 94 L 11/13/21 04:00 11/13/21 04:00 11/13/21 04:00 11/13/21 04:00 11/13/21 04:00 Laboratory Results - last 24 hr 11/11/21 20:04: Stool Occult Blood Negative 11/12/21 08:13: WBC 5.4 D, RBC 4.15 L, Hgb 13.1, Hct 40.4, MCV 97.4, MCH 31.5 H, MCHC 32.3, RDW 13.6, Plt Count 192 D, MPV 9.4, Neut % (Auto) 54.4, Lymph % (Auto) 30.5, [place] % (Auto) 4.9, Eos % (Auto) 9.6, Baso % (Auto) 0.6, Neut # (Auto) 2.9, Lymph # (Auto) 1.7, [place] # (Auto) 0.3, Eos # (Auto) 0.5 H, Baso # (Auto) 0.0 11/12/21 08:13: Sodium 137, Potassium 3.1 L D, Chloride 109 H, Carbon Dioxide 21 L, Anion Gap 10.1, BUN 21 H D, Creatinine 1.00, Estimated Creat Clear 51, Estimated GFR 58 L, Est GFR ( Amer) 70 D, Glucose 67 L, Calcium 7.5 L 11/12/21 08:13: Magnesium 1.6 I & O for Last 24 hours: Intake & Output 11/10/21 11/11/21 11/12/21 11/13/21 11:59 11:59 11:59 11:59 Intake Total 1698 / 1698 1919 Balance 1698 / 1698 1919 Weight 125 lb 113 lb 8.997 oz 111 lb 15.917 oz Microbiology Reports for the Last 24 Hours: Microbiology 11/10/21 16:30 Urine,Clean Catch Urine Culture - Final Escherichia coli Narrative: Cardiac catheterization completed yesterday. Impression/plan forwarded below. IMPRESSION Angiographically impressive myocardial bridge accompanied by hyperdynamic wall motion. Mildly elevated LVEDP PLAN 1. Recommend medical management. Management should include negative inotrope such as diltiazem or verapamil possibly combined with beta-blockers if patient can tolerate 2. Continue risk factor modification 3. Should patient continue to experience symptoms this vessel could be stented or possibly referred for surgical release of the myocardial bridge. Typically patients do well with medical management and that should be tried and maximized prior to consideration of either surgical or percutaneous correction - Constitutional no acute distress - *Routine Respiratory Exam Absent: respiratory distress - *Routine Cardiovascular Exam Absent: tachycardia
[2021-11-13 07:16] LABS: Basophils % 0.5 % (0.1-2.0); Eosinophils # 0.5 K/mm3 (0.0-0.4); Eosinophils % 6.8 % (0.1-12.0); Hematocrit 38.8 % (37.0-47.0); Hemoglobin 12.2 g/dL (12.2-16.2); Lymphocytes # 1.7 K/mm3 (0.7-4.5); Lymphocytes % 25.5 % (10-50); Mean Corpuscular HGB Conc 31.4 g/dL (31.8-35.4); Mean Corpuscular Hemoglobin 31.1 pg (27.0-31.2); Mean Corpuscular Volume 99.1 fl (81-99); Mean Platelet Volume 9.3 fl (7.4-10.4); Monocytes # 0.3 K/mm3 (0.1-1.0); Monocytes % 3.9 % (1.7-9.3); Neutrophils # 4.2 K/mm3 (1.8-7.8); Neutrophils % 63.3 % (37.0-80.0); Platelet Count 221 K/mm3 (142-424); Red Blood Count 3.92 M/mm3 (4.20-5.40); Red Cell Distribution Width 13.9 % (11.5-17.5); White Blood Count 6.6 K/mm3 (4.8-10.8)
[2021-11-13 07:21] LABS: Blood Urea Nitrogen 15 mg/dl (7-17); Calcium 7.5 mg/dl (8.4-10.2); Carbon Dioxide 21 mmol/L (22.0-30.0); Chloride 113 mmol/L (98-107); Creatinine Clearance Estimated 51 mL/min (50-200); Estimated Glomerular Filt Rate 58 ml/min (>60); GFR (African American) 70 ML/MIN (>60); Glucose 87 mg/dl (74-100); Sodium 135 mmol/L (136-145)
--- NOTE | 2021-11-13 07:41 | HMH.PNCARD ---
Subjective Date: 11/13/21 Time: 07:41 Principal diagnosis: Angina, N/V Interval history: 56 yo WF in NAD. Wants to try eating today instead of liquids. No cardiac complaints. Exam Vital signs and Labs for Last 24 Hours: Temp Pulse Resp BP Pulse Ox 98 F 57 L 18 99/53 L 94 L 11/13/21 04:00 11/13/21 04:00 11/13/21 04:00 11/13/21 04:00 11/13/21 04:00 Laboratory Results - last 24 hr 11/11/21 20:04: Stool Occult Blood Negative 11/12/21 08:13: WBC 5.4 D, RBC 4.15 L, Hgb 13.1, Hct 40.4, MCV 97.4, MCH 31.5 H, MCHC 32.3, RDW 13.6, Plt Count 192 D, MPV 9.4, Neut % (Auto) 54.4, Lymph % (Auto) 30.5, Banks % (Auto) 4.9, Eos % (Auto) 9.6, Baso % (Auto) 0.6, Neut # (Auto) 2.9, Lymph # (Auto) 1.7, Banks # (Auto) 0.3, Eos # (Auto) 0.5 H, Baso # (Auto) 0.0 11/12/21 08:13: Sodium 137, Potassium 3.1 L D, Chloride 109 H, Carbon Dioxide 21 L, Anion Gap 10.1, BUN 21 H D, Creatinine 1.00, Estimated Creat Clear 51, Estimated GFR 58 L, Est GFR ( Amer) 70 D, Glucose 67 L, Calcium 7.5 L 11/12/21 08:13: Magnesium 1.6 11/13/21 06:36: WBC 6.6, RBC 3.92 L, Hgb 12.2, Hct 38.8, MCV 99.1 H, MCH 31.1, MCHC 31.4 L, RDW 13.9, Plt Count 221, MPV 9.3, Neut % (Auto) 63.3, Lymph % (Auto) 25.5, Banks % (Auto) 3.9, Eos % (Auto) 6.8, Baso % (Auto) 0.5, Neut # (Auto) 4.2, Lymph # (Auto) 1.7, Banks # (Auto) 0.3, Eos # (Auto) 0.5 H, Baso # (Auto) 0.0 11/13/21 06:36: Sodium 135 L, Potassium 3.0 L, Chloride 113 H, Carbon Dioxide 21 L, Anion Gap 4.0 L, BUN 15 D, Creatinine 1.00, Estimated Creat Clear 51, Estimated GFR 58 L, Est GFR ( Amer) 70, Glucose 87 D, Calcium 7.5 L I & O for Last 24 hours: Intake & Output 11/10/21 11/11/21 11/12/21 11/13/21 11:59 11:59 11:59 11:59 Intake Total 1698 / 1698 1919 Balance 1698 / 1698 1919 Weight 125 lb 113 lb 8.997 oz 111 lb 15.917 oz Microbiology Reports for the Last 24 Hours: Microbiology 11/10/21 16:30 Urine,Clean Catch Urine Culture - Final Escherichia coli - Constitutional no acute distress - *Routine HEENT Exam Head: Present: normocephalic Eye: Present: EOMI, PERRL ENT: Present: mucous membranes moist - *Routine Neck Exam Present: supple. Absent: lymphadenopathy - *Routine Respiratory Exam Present: CTA bilaterally - *Routine Cardiovascular Exam Present: RRR - *Routine Abdominal Exam Present: soft, normoactive bowel sounds. Absent: tenderness - *Routine Extremities Exam Absent: cyanosis, clubbing, edema - *Routine Skin Exam Present: warm. 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 Nausea, vomiting and dehydration. IV fluids ongoing. Renal function improving back to normal. Pt wants to eat this AM. 2. Hyperdynamic EF with myocardial bridge as cause for elevated troponins. Continue aspirin and verapamil 120 mg daily. Echocardiogram reveals normal EF with no wall motion abnormalities. 3. Hypothyroidism, patient has been unable to take her thyroid replacement over the last 1 to 2 weeks. It has been restarted here. 4. Hypokalemia, improving 5. Hyponatremia, resolved 6. acute renal insufficiency, resolved 7. UTI, on antibiotic therapy 8. Recent 40 pound weight loss per patient. Results of abdominal/pelvis CT discussed with reading radiologist, Dr. Kenji Mercado, no evidence of celiac artery stenosis was identified. Surgery recommends outpatient evaluation. OK for discharge from cardiology standpoint. Home med
[2021-11-13 08:00] VITALS: BP 107/65; PULSE 58; PULSE 61; RESP 14; TEMP 36.4; O2SAT 94
--- NOTE | 2021-11-13 09:45 | HMH.DCSUM ---
General - General Admission date:: 11/10/21 Discharge date: 11/13/21 HPI HPI: 56-year-old female presented to the emergency department with increasing nausea, vomiting, and vague abdominal pain. She states that she has had trouble for about 5 months . Patient reports a weight loss of 30 to 40 pounds has also been noted. States that she has been sick for 2 weeks with nausea and vomiting and feels like someone is ripping my guts out and has been unable to take her medications for 1 week. Small dark bowel movements without visible blood. She lives with her 13 yr old adopted son. She is a nondrinker and denies drug use. She has never been to this hospital, states her primary care provider is in [place] at [facility]. Patient states her father had an SD at 57. She quit smoking 2 years ago. While in ed it was found pt had abnormal EKG and elevated troponins. Cardiology consulted for evaluation. Hospital Course Hospital Course: 56-year-old female presented to the emergency department with increasing nausea, vomiting, and vague abdominal pain. She states that she has had trouble for about 5 months . Patient reports a weight loss of 30 to 40 pounds has also been noted. States that she has been sick for 2 weeks with nausea and vomiting and feels like someone is ripping my guts out and has been unable to take her medications for 1 week. Small dark bowel movements without visible blood. She lives with her 13 yr old adopted son. She is a nondrinker and denies drug use. She has never been to this hospital, states her primary care provider is in [place] at [facility]. Patient states her father had an SD at 57. She quit smoking 2 years ago. While in ed it was found pt had abnormal EKG and elevated troponins. 11/10/21 CXR: FINDINGS: Two views of the chest were obtained. The heart size and pulmonary vascularity are within normal limits. The mediastinum is normal. There is mild biapical scarring and pleural thickening. There is no pneumothorax. The bony thorax is intact. IMPRESSION: Mild biapical scarring and pleural thickening. 11/10/21 Abd/Pelvis CT: FINDINGS: CT OF THE ABDOMEN AND PELVIS WITH CONTRAST Axial CT images of the abdomen and pelvis were obtained after the administration of oral and iv contrast. Coronal reformatted images were also obtained and reviewed.This study was performed with techniques to keep radiation doses as low as reasonably achievable (ALARA). Individualized dose reduction techniques using automated exposure control or adjustment of mA and/or kV according to the patient's size were employed. Abdomen: The lung bases are clear. The heart is normal in size. The liver has an unremarkable appearance, without evidence of mass or biliary ductal dilatation. The patient is status post cholecystectomy. The spleen is unremarkable. No adrenal mass is present. The pancreas has an unremarkable appearance. The kidneys are normal, without evidence of mass or hydronephrosis. The aorta is normal in caliber. There is no free fluid or adenopathy. No mass or abnormal fluid collection is seen. Pelvis: The appendix is normal. The patient is status post hysterectomy The urinary bladder is unremarkable. No inflammatory process is seen. There is no evidence of mass or adenopathy. There is no evidence of bowel obstruction. IMPRESSION: No evidence of acute intra-abdominal process. Reviewed, Interpreted and Dictated by Kenji Mercado III, MD 11/11/21 Upper GI and Small Bowel XR: FINDINGS: UPPER GI WITH SBFT HISTORY: Nausea PROCEDURE: The patient ingested barium. Effervescent crystals were also administered. Spot and overhead films were obtained. Additional barium was administered for a SBFT. FINDINGS:The esophagus has a normal appearance.Marked gastroesophageal reflux is noted to the level of the upper thoracic esophagus. Peristalsis is normal. The rugal fold pattern of the stomach is normal. The duodenal
--- NOTE | 2021-11-13 11:34 | DIET.NUTRFU ---
RD saw patient today, she plans on going home today and following up with GI as outpatient. This RD provided her with handout on bland/GERD diet to help to tolerate a oral diet until GI consult. Talked to her about comfort foods to eat. She had previously been throwing up for past 5 months. During stay we treated her cardio problems with cardio cath. The upper GI tests did not show any blockage. She may need multiple GI vists to determine whats causing her digestion issues. Provider is discharging her on PPI and bland diet for now.
[2021-11-13 11:43] VITALS: BP 90/60; PULSE 82; RESP 14; TEMP 36.8; O2SAT 93
[2021-11-13 12:00] VITALS: PULSE 70
== END 2021-11-13 16:30 | disposition home or self-care (01) ==
LOC: ER 16:26 → 2ND 16:48
PROVIDERS: Internal Medicine; Nurse Practitioner Family; Physician Assistant; Admitting Provider Emergency Medicine; Emergency Provider Emergency Medicine; Visit Provider Emergency Medicine
DX: E86.0 Dehydration (principal); N39.0 Urinary tract infection, site not specified; I10 Essential (primary) hypertension; E03.9 Hypothyroidism, unspecified; Z79.899 Other long term (current) drug therapy; Z82.49 Family history of ischemic heart disease and other diseases of the circulatory system; E78.5 Hyperlipidemia, unspecified; Q24.5 Malformation of coronary vessels; R11.2 Nausea with vomiting, unspecified; R94.31 Abnormal electrocardiogram [ECG] [EKG]; Z20.822 Contact with and (suspected) exposure to COVID-19
CPT/HCPCS: G0378; 36415; 71046; 74177; 74246; 74248; 80048; 80053; 81001; 82150; 82272; 83690; 83735; 84145; 84436; 84443; 84479; 84484; 85025; 85651; 86140; 87086; 87088; 87186; 87507; 93005; 93306; 93458; 96365; 96367; 96375; 96376; 99152; 99284; C1725; C1769; C9803; G0328; J0696; J1644; J2405; Q9967; U0003; U0005

== ENCOUNTER 2022-06-26 01:00 | Emergency (ER) | payer MEDICARE, MEDICAID, SELFPAY ==
[2022-06-26] VITALS (8 sets, daily range): BP systolic 104–120; BP diastolic 71–90; PULSE 90–108; RESP 16–20; TEMP 37.1; O2SAT 92–97; BMI 17.3
--- NOTE | 2022-06-26 01:05 | ECG_ITS ---
APPROVED REPORT Exam: Resting ECG HR:116 bpm ECG Measurements Heart Rate 116 AXES RI 158 P 86 QRSd 69 QRS 92 QT 433 T 84 QTc 502 Conclusion SINUS TACHYCARDIA Bi-atrial abnormality BORDERLINE RIGHT AXIS DEVIATION [QRS AXIS > 90] NONSPECIFIC ST & T-WAVE ABNORMALITY Electronically signed by : Maciel Van MD 06/26/2022 16:22:38
--- NOTE | 2022-06-26 01:11 | XR_ITS ---
PROCEDURE INFORMATION: Exam: XR Chest Exam date and time: 06/26/2022 1:11 AM Age: 56 years old Clinical indication: Shortness of breath; Additional info: SOA TECHNIQUE: Imaging protocol: Radiologic exam of the chest. Views: 2 views. COMPARISON: CR XR CHEST 2V 11/10/2021 11:04 AM FINDINGS: Lungs: Emphysema. Mild haziness in the right lower lobe could reflect developing pneumonia. No consolidation. Pleural spaces: Unremarkable. No pleural effusion. No pneumothorax. Heart/Mediastinum: Unremarkable. No cardiomegaly. Bones/joints: Unremarkable. IMPRESSION: Mild haziness in the right lower lobe could indicate pneumonia.
[2022-06-26 01:19] LABS: Coronavirus 19, PCR Not Detected (NotDetected); Influenza A, PCR Not Detected (NotDetected); Influenza B, PCR Not Detected (NotDetected)
[2022-06-26 01:20] LABS: Basophils # 0.1 K/mm3 (0-0.2); Basophils % 0.6 % (0.1-2.0); Eosinophils # 0.4 K/mm3 (0.0-0.4); Eosinophils % 3.5 % (0.1-12.0); Hematocrit 49.5 % (37.0-47.0); Hemoglobin 15.8 g/dL (12.2-16.2); Lymphocytes # 0.9 K/mm3 (0.7-4.5); Lymphocytes % 8.3 % (10-50); Mean Corpuscular HGB Conc 31.8 g/dL (31.8-35.4); Mean Corpuscular Hemoglobin 29.4 pg (27.0-31.2); Mean Corpuscular Volume 92.2 fl (81-99); Mean Platelet Volume 8.9 fl (7.4-10.4); Monocytes # 0.6 K/mm3 (0.1-1.0); Monocytes % 5.4 % (1.7-9.3); Neutrophils # 8.4 K/mm3 (1.8-7.8); Neutrophils % 82.1 % (37.0-80.0); Platelet Count 302 K/mm3 (142-424); Red Blood Count 5.37 M/mm3 (4.20-5.40); Red Cell Distribution Width 13.7 % (11.5-17.5); White Blood Count 10.3 K/mm3 (4.8-10.8)
[2022-06-26 01:30] LABS: Chloride 108 mmol/L (98-107); Potassium 3.2 mmoL/L (3.5-5.1); Sodium 141 mmol/L (136-145)
[2022-06-26 01:33] LABS: Alanine Aminotransferase 220 U/L (12-78); Albumin Level 3.7 g/dl (3.5-5.0); Albumin/Globulin Ratio 0.9 (1.1-1.8); Alkaline Phosphatase 233 U/L (38-126); Aspartate Amino Transferase 267 U/L (14-36); Bilirubin,Total 0.8 mg/dl (0.2-1.3); Blood Urea Nitrogen 15 mg/dl (7-17); Calcium 9.4 mg/dl (8.4-10.2); Carbon Dioxide 23 mmol/L (22.0-30.0); Creatinine Clearance Estimated 56 mL/min (50-200); Estimated Glomerular Filt Rate 74 ml/min (>60); GFR (African American) 90 ML/MIN (>60); Glucose 133 mg/dl (74-100); Total Protein,Serum 7.7 g/dl (6.3-8.2)
[2022-06-26 01:34] LABS: Lactic Acid 1.5 mmol/L (0.7-2.1)
[2022-06-26 01:38] LABS: C-Reactive Protein 26.4 mg/L (0-4)
[2022-06-26 01:44] LABS: Erythrocyte Sedimentation Rate 12 mm/hr (0-30)
[2022-06-26 01:48] LABS: Troponin I < 0.01 ng/ml (0.00-0.034)
--- NOTE | 2022-06-26 01:52 | HMH.EDSOB ---
Discharge Plan Disposition Patient Disposition: Home, Self-Care Chief Complaint: Shortness of Breath/Dyspnea Prescriptions Prescriptions: No Action fluoxetine 40 MG capsule 80 mg PO DAILY omeprazole 40 MG capsule,delayed release(DR/EC) 40 mg PO DAILY levothyroxine 125 MCG tablet 125 mcg PO DAILY metoprolol tartrate 25 MG tablet 25 mg PO BID fluticasone propion-salmeterol 12 GM HFA aerosol inhaler 2 puffs INHALATION BID pravastatin 40 MG tablet 40 mg PO HS sucralfate 1 GM tablet 1 gm PO ACHS Referrals Follow up/Referrals: Provider,Referral, MD [Primary Care Provider] - See instructions Clinical Impressions Clinical Impression: Chest pain Instructions Patient Instructions: DI for Shortness of Breath Discharge ED Provider: Abdulkadir Perera Resp/SOB HPI General Chief Complaint: Shortness of Breath/Dyspnea Stated Complaint: SOB Time Seen by Provider: 06/26/22 01:52 Mode of Arrival: EMS Source of Information: Patient, EMS and Medical Record Limitations: No Limitations Description of Symptoms (Recalled from ER Triage Doc. by RN): pt c/o SOA x 2 days and coughing up yellow phlegm History of Present Illness pt with sob and hx of breathing problems and chest pain - has recent cath 11/14 - stopped tob use Complaint: cough Onset (ago): hour(s) Severity: moderate Associated symptoms: denies other symptoms Treatment prior to arrival: bronchodilator Related Data Home oxygen amount: none Home Medications Medication Instructions Recorded Confirmed fluoxetine 40 mg capsule 80 mg PO DAILY Anxiety 11/10/21 06/26/22 levothyroxine 125 mcg tablet 125 mcg PO DAILY hypothyroidism 11/10/21 06/26/22 metoprolol tartrate 25 mg tablet 25 mg PO BID Hypertension 11/10/21 06/26/22 omeprazole 40 mg capsule,delayed 40 mg PO DAILY acid reflux 11/10/21 06/26/22 release fluticasone propionate 115 2 puffs inhalation BID Asthma 11/11/21 06/26/22 mcg-salmeterol 21 mcg/actuation HFA inhaler pravastatin 40 mg tablet 40 mg PO HS High cholesterol 06/26/22 06/26/22 sucralfate 1 gram tablet 1 gm PO ACHS stomach 06/26/22 06/26/22 Allergies Allergy/AdvReac Type Severity Reaction Status Date / Time cyclobenzaprine Allergy Mild . Verified 11/10/21 10:26 [From FLEXERIL] Well's Criteria PE Score Clinical signs/symptoms of DVT: No PE is #1 diagnosis or equally likely: Yes Heart rate is > 100: Yes Immobile at least 3 days, or surgery in past 4 wks: No Previously, obj. diagnosed PE or DVT: No Hemoptysis: No Malignancy w/Rx within 6mo, or palliative: No PE Score: 4 PFSH PFS Medical History (Updated 06/26/22 @ 05:53 by Abdulkadir Perera MD) Dizziness Myocardial infarction Social History Smoking Status: Former smoker alcohol intake: never current occupational status: disabled Travel in the last 8 weeks: None ROS Obtained: Yes All systems reviewed & no additional complaints except as documented Physical Exam General General appearance: alert Head Head exam: normocephalic Eye Eye exam: Present PERRL and EOMI ENT ENT exam: Present mucous membranes moist Neck Neck exam: Present trachea midline Respiratory Respiratory exam: Present normal lung sounds bilaterally; Absent respiratory distress Cardiovascular Cardiovascular exam: Present regular rate and systolic murmur Abdominal Exam Abdominal exam: Present soft Extremities Exam Extremities exam: Present full ROM Neurological Exam Neurological exam: Present alert, oriented X3 and CN II-XII intact Psychiatric Psychiatric exam: Present normal affect Skin Skin exam: Absent rash Medical Decision Making Medical Records Medical records reviewed: Yes I reviewed the patient's medical records. Philip Inquiry Pt receiving controlled substance: No Vital Signs: 06/26/22 01:01 06/26/22 01:30 06/26/22 02:00 Temperature 98.7 F Temperature Source Oral Pulse Rate 102 H 97 H Pulse Rate [Right] 108 H
--- NOTE | 2022-06-26 01:56 | CT_ITS ---
PROCEDURE INFORMATION: Exam: CTA Chest With Contrast Exam date and time: 06/26/2022 2:26 AM Age: 56 years old Clinical indication: Shortness of breath; Additional info: SOA TECHNIQUE: Imaging protocol: Computed tomographic angiography of the chest with contrast. 3D rendering (Not supervised by radiologist): MIP and/or 3D reconstructed images were created by the technologist. Radiation optimization: All CT scans at this facility use at least one of these dose optimization techniques: automated exposure control; mA and/or kV adjustment per patient size (includes targeted exams where dose is matched to clinical indication); or iterative reconstruction. Contrast material: ISOVUE 370; Contrast volume: 70 ml; Contrast route: INTRAVENOUS (IV); COMPARISON: CR XR CHEST 2V 06/26/2022 1:11 AM FINDINGS: Limitations: Respiratory motion artifact degrades images, limiting sensitivity of exam. Pulmonary arteries: No evidence of large central pulmonary emboli. Respiratory motion artifact limits evaluation for definitive exclusion of smaller pulmonary emboli (subsegmental). Aorta: Ascending aortic ectasia. Lungs: No acute airspace consolidation. No appreciable pulmonary edema. Subsegmental atelectasis/scarring in the medial right middle lobe and lingula. Pleuroparenchymal scarring in the lung apices. Pleural spaces: No pneumothorax. No pleural effusion. Heart: No cardiomegaly. No significant pericardial effusion. Lymph nodes: Calcified lymph nodes, compatible with chronic sequelae of prior granulomatous disease. Intraperitoneal space: No emergent findings or suspicious mass lesions in the visualized upper abdomen. Bones/joints: No acute osseous abnormality. Soft tissues: Unremarkable. IMPRESSION: No acute findings in the chest. No evidence of large central pulmonary emboli. Technically inadequate study for definitive exclusion of smaller pulmonary emboli (subsegmental).
--- NOTE | 2022-06-26 04:06 | PC.NURSE ---
2nd trop drawn @ this time and pt updated on POC
[2022-06-26 04:37] LABS: Troponin I < 0.01 ng/ml (0.00-0.034)
--- NOTE | 2022-06-26 04:54 | PC.NURSE ---
removed O2 and monitor pt O2 sats to see hoe pt tolerates @ thistime
== END 2022-06-26 05:59 | disposition home or self-care (01) ==
PROVIDERS: Emergency Provider Emergency Medicine
DX: R06.02 Shortness of breath (principal)
CPT/HCPCS: 71046; 71275; 80053; 83605; 84484; 85025; 85651; 86140; 87040; 93005; 99285; C9803; Q9967; U0003; U0005

== ENCOUNTER 2023-02-14 20:00 | Emergency (ER) | payer MEDICARE, MEDICAID, SELFPAY ==
[2023-02-14] VITALS (7 sets, daily range): BP systolic 94–163; BP diastolic 63–90; PULSE 72–95; RESP 18–19; TEMP 36.8–36.9; O2SAT 92–96; BMI 17.9; BMI 16.8
--- NOTE | 2023-02-14 19:59 | ECG_ITS ---
APPROVED REPORT Exam: Resting ECG HR:93 bpm ECG Measurements Heart Rate 93 AXES MI 144 P 83 QRSd 77 QRS 86 QT 352 T 68 QTc 403 Conclusion SINUS RHYTHM NONSPECIFIC T-WAVE ABNORMALITY BORDERLINE ECG UNCONFIRMED REPORT Electronically signed by : Maciel Van MD 02/15/2023 19:37:34
--- NOTE | 2023-02-14 20:03 | CT_ITS ---
PROCEDURE INFORMATION: Exam: CTA Chest With Contrast Exam date and time: 02/14/2023 8:45 PM Age: 57 years old Clinical indication: Sternal or substernal pain; Patient HX: Sharp chest pain, quit smoking 1 year ago. Prior mi. ; Additional info: Cp TECHNIQUE: Imaging protocol: Computed tomographic angiography of the chest with contrast. 3D rendering (Not supervised by radiologist): MIP and/or 3D reconstructed images were created by the technologist. Radiation optimization: All CT scans at this facility use at least one of these dose optimization techniques: automated exposure control; mA and/or kV adjustment per patient size (includes targeted exams where dose is matched to clinical indication); or iterative reconstruction. Contrast material: ISOVUE 370; Contrast volume: 70 ml; Contrast route: INTRAVENOUS (IV); REPORTING DATA: Count of CT and Cardiac NM exams in prior 12 months: This patient has received [address] and 0 known cardiac nuclear medicine studies in the 12 months prior to the current study. COMPARISON: CT ANGIO CHEST PE PROTOCOL 06/26/2022 2:26 AM FINDINGS: Pulmonary arteries: Normal. No pulmonary emboli. Aorta: No aortic aneurysm. No aortic dissection. Lungs: Examination is limited by motion. Suspect emphysema with bronchial wall thickening and associated streaky opacities. No lobar consolidation. Pleural spaces: No pneumothorax. No pleural effusion. Heart: No cardiomegaly. No pericardial effusion. Lymph nodes: No enlarged lymph nodes. Bones/joints: No acute fracture. Soft tissues: Post cholecystectomy. IMPRESSION: Examination is limited by motion. Suspect emphysema with bronchial wall thickening and associated streaky opacities which may be hypoventilatory however mild atypical pneumonitis should be clinically excluded. COMMENTS: In the absence of a history or active diagnosis of lung cancer, it is recommended that this patient with emphysema be evaluated for enrollment in a low dose CT lung cancer screening program.
--- NOTE | 2023-02-14 20:03 | XR_ITS ---
PROCEDURE INFORMATION: Exam: XR Chest Exam date and time: 02/14/2023 8:30 PM Age: 57 years old Clinical indication: Sternal or substernal pain; Patient HX: Sharp chest pain, quit smoking 1 year ago. Prior mi. ; Additional info: Cp TECHNIQUE: Imaging protocol: Radiologic exam of the chest. Views: 2 views. COMPARISON: CR XR CHEST 2V 06/26/2022 1:11 AM FINDINGS: Lungs: Hyperinflation without lobar consolidation. Pleural spaces: No pneumothorax. Heart/Mediastinum: No cardiomegaly. Bones/joints: No acute fracture. IMPRESSION: Hyperinflation without lobar consolidation.
[2023-02-14 20:10] LABS: Coronavirus 19, PCR Not Detected (NotDetected); Influenza A, PCR Not Detected (NotDetected); Influenza B, PCR Not Detected (NotDetected)
[2023-02-14 20:11] LABS: Basophils # 0.1 K/mm3 (0-0.2); Basophils % 0.8 % (0.1-2.0); Eosinophils # 0.7 K/mm3 (0.0-0.4); Eosinophils % 8.5 % (0.1-12.0); Hematocrit 44.6 % (37.0-47.0); Hemoglobin 14.7 g/dL (12.2-16.2); Mean Corpuscular Hemoglobin 31.2 pg (27.0-31.2); Mean Corpuscular Volume 94.6 fl (81-99); Mean Platelet Volume 8.3 fl (7.4-10.4); Monocytes # 0.5 K/mm3 (0.1-1.0); Monocytes % 5.2 % (1.7-9.3); Neutrophils # 5.4 K/mm3 (1.8-7.8); Neutrophils % 62.5 % (37.0-80.0); Platelet Count 286 K/mm3 (142-424); Red Blood Count 4.72 M/mm3 (4.20-5.40); Red Cell Distribution Width 12.9 % (11.5-17.5); White Blood Count 8.6 K/mm3 (4.8-10.8)
--- NOTE | 2023-02-14 20:12 | HMH.EDCP ---
Discharge Plan Disposition Patient Disposition: Home, Self-Care Condition: Good Prescriptions Prescriptions: New azithromycin [azithromycin] 250 mg tablet 250 mg PO DIRECTED Qty: 6 0RF Rx Instructions: Take two (2) tablets on day #1, then one (1) tablet day #2 thru #5 benzonatate 100 mg Capsule 100 mg PO Q8H Qty: 20 0RF prednisone [prednisone] 20 mg tablet 20 mg PO BID Qty: 10 0RF No Action fluoxetine 40 MG capsule 80 mg PO DAILY omeprazole 40 MG capsule,delayed release(DR/EC) 40 mg PO DAILY levothyroxine 125 MCG tablet 125 mcg PO DAILY metoprolol tartrate 25 MG tablet 25 mg PO BID fluticasone propion-salmeterol 12 GM HFA aerosol inhaler 2 puffs INHALATION BID pravastatin 40 MG tablet 40 mg PO HS sucralfate 1 GM tablet 1 gm PO ACHS Referrals Follow up/Referrals: Provider,MD Lázaro [Referring] - See instructions Santy Baumann MD [Physician] - See instructions Clinical Impressions Clinical Impression: Pleurisy, Pneumonitis Instructions Patient Instructions: DI for Atypical Chest Pain, DI for Pneumonia -- Adult Discharge ED Provider: Dilma (ED)Abdulkadir Chest Pain HPI General Chief Complaint: Chest Pain Stated Complaint: cp Time Seen by Provider: 02/14/23 20:00 Mode of Arrival: Ambulatory Source of Information: Patient and Medical Record Limitations: No Limitations Description of Symptoms (Recalled from ER Triage Doc. by RN): pt states that 4 days ago lost taste and began have body aches, chill thinks she has covid this morning pt began having chest heaviness that comes and go History of Present Illness HPI narrative: not feeling well over tje last few days -has achey - pt has no hemoptysis - uses albuterol inhaler complaint: chest pain indicative of cardiac Onset (ago): day(s) Activity at onset: during rest Pain location: left chest Severity: moderate Quality: sharp Risk Factors for CAD: Family Hx of CAD Treatments prior to or on arrival for Cardiac Chest Pain: none DELVIN Score for Non-Stemi Age of Patient: 50-59 years old Heart Rate: 90-109 bpm Systolic Blood Pressure: 120-139 mmhg Serum Creatinine: 0.80-1.19 mg/dl CHF Killip Class: I-No CHF Other Risk Factors: None Non-Stemi Risk Score: 97 Risk Stratification: 1-108 = Low Risk Related Data On Oral Contraceptives: No Home Medications Medication Instructions Recorded Confirmed fluoxetine 40 mg capsule 80 mg PO DAILY Anxiety 11/10/21 06/26/22 levothyroxine 125 mcg tablet 125 mcg PO DAILY hypothyroidism 11/10/21 06/26/22 metoprolol tartrate 25 mg tablet 25 mg PO BID Hypertension 11/10/21 06/26/22 omeprazole 40 mg capsule,delayed 40 mg PO DAILY acid reflux 11/10/21 06/26/22 release fluticasone propionate 115 2 puffs inhalation BID Asthma 11/11/21 06/26/22 mcg-salmeterol 21 mcg/actuation HFA inhaler pravastatin 40 mg tablet 40 mg PO HS High cholesterol 06/26/22 06/26/22 sucralfate 1 gram tablet 1 gm PO ACHS stomach 06/26/22 06/26/22 Previous Rx's Medication Instructions Recorded azithromycin 250 mg tablet 250 mg PO DIRECTED #6 tabs 02/14/23 benzonatate 100 mg capsule 100 mg PO Q8H #20 caps 02/14/23 prednisone 20 mg tablet 20 mg PO BID #10 tabs 02/14/23 Allergies Allergy/AdvReac Type Severity Reaction Status Date / Time cyclobenzaprine Allergy Mild . Verified 11/10/21 10:26 [From [facility]LEXERIL] [facility] Disclaimer: The information contained in this section may have been updated after the patient was seen, as this information can be updated by other users. Medical History (Updated 02/14/23 @ 22:17 by Abdulkadir Perera (ED)MD) Dizziness Myocardial infarction Social History Smoking Status: Former smoker alcohol intake: never current occupational status: disabled Travel in the last 8 weeks: None ROS Obtained: Yes All systems reviewed & no additional complaints except as documented Physical Exam General Gene
[2023-02-14 20:19] LABS: Chloride 104 mmol/L (98-107); Sodium 135 mmol/L (136-145)
[2023-02-14 20:20] LABS: Potassium 3.7 mmoL/L (3.5-5.1)
[2023-02-14 20:22] LABS: Alanine Aminotransferase 22 U/L (12-78); Alkaline Phosphatase 184 U/L (38-126); Anion Gap 11.7 mEq/L (5-15); Aspartate Amino Transferase 36 U/L (14-36); Bilirubin,Direct 0.2 mg/dl (0.0-0.4); Bilirubin,Indirect 0.2 mg/dL (0.0-0.9); Bilirubin,Total 0.4 mg/dl (0.2-1.3); Bilirubin,Unconjugated 0.2 mg/dL (0.0-1.1); Blood Urea Nitrogen 22 mg/dl (7-17); Carbon Dioxide 23 mmol/L (22.0-30.0); Creatinine Clearance Estimated 41 mL/min (50-200); Estimated Glomerular Filt Rate 57 ml/min (>60); GFR (African American) 69 ML/MIN (>60); Total Protein,Serum 7.8 g/dl (6.3-8.2)
[2023-02-14 20:23] LABS: Calcium 9.1 mg/dl (8.4-10.2); Glucose 94 mg/dl (74-100)
[2023-02-14 20:28] LABS: C-Reactive Protein 35.4 mg/L (0-4)
[2023-02-14 20:33] LABS: NT Pro Brain Natriuretic Pep. 180 pg/mL (0-125)
--- NOTE | 2023-02-14 20:38 | PC.NURSE ---
Patient gone to RAD at this time.
[2023-02-14 20:41] LABS: Procalcitonin 0.064 ng/mL (0.0-2.0)
[2023-02-14 20:42] LABS: Troponin I < 0.01 ng/ml (0.00-0.034)
--- NOTE | 2023-02-14 20:49 | INFXCTL.NOTE ---
patient back in room at this time.
--- NOTE | 2023-02-14 20:49 | PC.NURSE ---
patient back in room at this time.
[2023-02-14 20:52] LABS: Erythrocyte Sedimentation Rate 20 mm/hr (0-30)
[2023-02-14 20:55] LABS: Thyroid Stimulating Hormone 3.95 uIU/mL (0.465-4.68)
== END 2023-02-14 22:39 | disposition home or self-care (01) ==
PROVIDERS: Emergency Provider Emergency Medicine; PCP Nurse Practitioner
DX: R07.89 Other chest pain (principal); R09.1 Pleurisy; Z87.891 Personal history of nicotine dependence
CPT/HCPCS: 71046; 71275; 80048; 80076; 83880; 84145; 84436; 84443; 84484; 85025; 85651; 86140; 93005; 96360; 96374; 99285; C9803; Q9967; U0003; U0005